=== PATIENT | female | born 1960 | race Caucasian/White ===

== ENCOUNTER 2023-09-07 16:41 | Emergency (ER) | payer BC ==
[~2023-09-07] VITALS: Ht 165.1 cm; Wt 85.4 kg
[2023-09-07 16:53] VITALS: TEMP 98.5
[2023-09-07 19:34] VITALS: BP 143/82; PULSE 80; RESP 16; O2SAT 98
== END 2023-09-07 19:37 | disposition home or self-care (01) ==
LOC: ER 16:41
DX: R42 Dizziness and giddiness (principal); I10 Essential (primary) hypertension
CPT/HCPCS: 99281